=== PATIENT | female | born 1960 ===

== ENCOUNTER 2018-04-19 16:01 | Emergency (ER) | payer OTHER ==
[2018-04-19 16:15] VITALS: BP 121/70; PULSE 73; RESP 16; TEMP 98.3; O2SAT 98
--- NOTE | 2018-04-19 17:53 | ED PDOC ---
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 Patient denies any injury to the area, but states she has had similar pain in the past (a long time ago) that resolved. Patient reports back pain with movement, worsening when she arches her back or sits down. Patient took motrin yesterday with no relief. PMD: None provided. Past Medical History Reviewed: Historical Data, Nursing Documentation, Vital Signs Vital Signs: Last Vital Signs Temp 98.3 F 04/19/18 16:12 Pulse 73 04/19/18 16:12 Resp 16 04/19/18 16:12 BP 121/70 04/19/18 16:12 Pulse Ox 98 04/19/18 16:12 - Medical History PMH: No Chronic Diseases - Family History Family History: States: No Known Family Hx - Allergies Allergies/Adverse Reactions: Allergies Allergy/AdvReac Type Severity Reaction Status Date / Time No Known Allergies Allergy Verified 04/19/18 16:16 Review of Systems ROS Statement: Except As Marked, All Systems Reviewed And Found Negative Musculoskeletal: Positive for: Back Pain (lower) Physical Exam - Reviewed Nursing Documentation Reviewed: Yes Vital Signs Reviewed: Yes - Physical Exam Appears: Positive for: Well, Non-toxic, No Acute Distress Head Exam: Positive for: ATRAUMATIC, NORMOCEPHALIC Skin: Positive for: Normal Color Back: Positive for: Normal Inspection. Negative for: L CVA Tenderness, R CVA Tenderness, Vertebral Tenderness, Other (lesions) Neurologic/Psych: Positive for: Alert, Oriented (3x) - ECG O2 Sat by Pulse Oximetry: 98 (RA) Pulse Ox Interpretation: Normal Medical Decision Making Medical Decision Makin:24 Initial impression: 58 year old female with back pain Initial plan: * reevaluation Pt left ER prior to getting pain medication. Scribe Attestation: Documented by Lisseth Delgado, acting as a scribe for Niyah Vizcarra PA-C. Provider Scribe Attestation: All medical record entries made by the Scribe were at my direction and personally dictated by me. I have reviewed the chart and agree that the record accurately reflects my personal performance of the history, physical exam, medical decision making, and the department course for this patient. I have also personally directed, reviewed, and agree with the discharge instructions and disposition. Disposition - Clinical Impression Clinical Impression: Low back pain - Patient ED Disposition Is Patient to be Admitted: No Counseled Patient/Family Regarding: Diagnosis, Need For Followup - Disposition Disposition: Left W/O Treatment Disposition Time: 17:06 Condition: GOOD Forms: [employer] (Lao)
== END 2018-04-19 18:30 | disposition left against medical advice (07) ==
LOC: MERGE 16:01 → H.ER 16:01
DX: M54.5 Low back pain (principal)

== ENCOUNTER 2018-09-25 14:34 | Emergency (ER) | payer OTHER ==
[2018-09-25 14:34] VITALS: BMI 26.4
[2018-09-25 14:40] VITALS: BP 125/74; PULSE 82; RESP 15; TEMP 98.8; O2SAT 97
--- NOTE | 2018-09-25 15:34 | ED PDOC ---
Lower Extremity Pain/Injury Time Seen by Provider: 09/25/18 14:43 Chief Complaint (Nursing): Lower Extremity Problem/Injury Chief Complaint (Provider): Lower Extremity Problem/Injury History Per: Patient, Inpatient Care Manager Rn (Amado Chadwick #[id number]) History/Exam Limitations: language barrier Onset/Duration Of Symptoms: Days (x1) Current Symptoms Are (Timing): Still Present Additional Complaint(s): Patient is a 58 y/o female with a PMHx of hypercholesterolemia who presents to the ED for evaluation of atraumatic, non-radiating bilateral knee pain onset yesterday. Patient claims the pain is greater on the left than on the right. Patient states she has been taking Motrin with no relief. Patient denies trauma, fever, numbness, tingling, and calf pain. PCP: None Provided Past Medical History Reviewed: Historical Data, Nursing Documentation, Vital Signs Vital Signs: Last Vital Signs Temp 98.8 F 09/25/18 14:39 Pulse 82 09/25/18 14:39 Resp 15 09/25/18 14:39 BP 125/74 09/25/18 14:39 Pulse Ox 97 09/25/18 14:39 - Medical History PMH: Hypercholesterolemia Denies: Chronic Kidney Disease - Surgical History Surgical History: No Surg Hx Denies: Appendectomy, Cholecystectomy - Family History Family History: States: Unknown Family Hx - Immunization History Hx Tetanus Toxoid Vaccination: No Hx Influenza Vaccination: No Hx Pneumococcal Vaccination: No - Home Medications Home Medications: Ambulatory Orders Medication Instructions Recorded Meloxicam [Mobic] 7.5 mg PO DAILY PRN #10 tab 09/25/18 - Allergies Allergies/Adverse Reactions: Allergies Allergy/AdvReac Type Severity Reaction Status Date / Time No Known Allergies Allergy Verified 05/23/18 10:55 Review of Systems ROS Statement: Except As Marked, All Systems Reviewed And Found Negative Constitutional: Negative for: Fever Musculoskeletal: Positive for: Other (Bilateral Knee Pain). Negative for: Leg Pain (calf) Neurological: Negative for: Numbness (or tingling) Physical Exam - Reviewed Nursing Documentation Reviewed: Yes Vital Signs Reviewed: Yes - Physical Exam Appears: Positive for: No Acute Distress Head Exam: Positive for: ATRAUMATIC, NORMAL INSPECTION, NORMOCEPHALIC Skin: Positive for: Normal Color, Warm, DRY Eye Exam: Positive for: EOMI, Normal appearance, PERRL Neck: Positive for: Normal, Painless ROM, Supple Cardiovascular/Chest: Positive for: Regular Rate, Rhythm. Negative for: Murmur Respiratory: Positive for: Normal Breath Sounds. Negative for: Respiratory Distress Pulses-Dorsalis Pedis (L): 2+ Pulses-Dorsalis Pedis (R): 2+ Extremity: Positive for: Normal ROM (actively), Capillary Refill (less than 2 seconds), Swelling (minimal on left knee; none on right knee). Negative for: Tenderness (bilaterally), Calf Tenderness, Deformity, Other (warmth or erythema) Neurological/Psych: Positive for: Alert, Oriented (x3) - ECG O2 Sat by Pulse Oximetry: 97 (RA) Pulse Ox Interpretation: Normal - Radiology X-Ray: Interpreted by Me (b/l knee x-ray) X-Ray Interpretation: No Acute Disease Medical Decision Making Medical Decision Making: Time: 1450 Impression: Bilateral Knee Pain Plan: Knee 3 Views BI [Rad] Toradol 30 mg IM Scribe Attestation: Documented by Zana Duarte, acting as a scribe Julio Cesar Farley PA-C. Provider Scribe Attestation: All medical record entries made by the Scribe were at my direction and personally dictated by me. I have reviewed the chart and agree that the record accurately reflects my personal performance of the history, physical exam, medical decision making, and the department course for this patient. I have also personally directed, reviewed, and agree with the discharge instructions and disposition. Disposition - Clinical Impression Clinical Impression: Bilateral knee pain - Patient ED Disposition Is Patient to be Admitted: No - Disposition Disposition: Routine/Home Disposition Time: 15:15 Condition: IMPROVED Additional Instructions: FOLLOW UP WITH AN ORTHOPEDIST FOR FURTHER EVALUATION RETURN TO ED IMMEDIATELY IF SYMPTOMS WORSEN CHAVA BLANCO, thank you for letting us take care of you today. Your provider was Tito Horta MD and you were treated for B/L KNEE PAIN. The emergency medical care you received today was directed at your acute symptoms. If you were prescribed any medication, please fill it and take as directed. It may take several days for your symptoms to resolve. Return to the Emergency Department if your symptoms worsen, do not improve, or if you have any other problems. Please contact your doctor or call one of the physicians/clinics you have been referred to that are listed on the Patient Visit Information form that is included in your discharge packet. Bring any paperwork you were given at discharge with you along with any medications you are taking to your follow up visit. Our treatment cannot replace ongoing medical care by a primary care provider outside of the emergency department. Thank you for allowing the [facility] team to be part of your care today. If you had an X-Ray or CT scan: A Radiologist will review the ED reading if any change in treatment is needed we will contact you. If you had a blood, urine, or wound culture: It will take several days for the results, if any change in treatment is needed we will contact you. If you had an STI test: It will take 48 hours for the results. Please call after 1 week if you have not heard back. Prescriptions: Meloxicam [Mobic] 7.5 mg PO DAILY PRN #10 tab PRN Reason: Pain, Mild (1-3) Instructions: Knee Pain (DC) Print Language: ALBANIAN
--- NOTE | 2018-09-25 16:21 | RAD ---
Date of service: 09/25/2018 PROCEDURE: Bilateral Knee Radiographs. HISTORY: Pain COMPARISON: None. TECHNIQUE: 3 views obtained. FINDINGS: BONES: Bone alignment and mineralization are normal. There is no acute displaced fracture or bone destruction. JOINTS: There is mild tricompartmental degenerative osteoarthrosis with reduced joint spaces, chondrocalcinosis, marginal osteophytes and tibial spiking, worse in the medial compartment. SOFT TISSUES: Right Knee: Normal. Left Knee: Normal. JOINT EFFUSION: Right Knee: None. Left Knee: None. OTHER FINDINGS: None. IMPRESSION: No acute fracture or dislocation. Mild tricompartmental degenerative osteoarthrosis, worse in the medial compartments.
== END 2018-09-25 16:26 | disposition home or self-care (01) ==
LOC: H.ER 14:34 → SUPCPDRO 14:34 → H.ER 16:26
DX: M25.561 Pain in right knee (principal); M25.562 Pain in left knee
CPT/HCPCS: 73562; 96372; 99283; J1885

== ENCOUNTER 2018-10-09 10:52 | Emergency (ER) | payer SELFPAY ==
[2018-10-09 11:19] VITALS: PULSE 71; TEMP 98.3; O2SAT 99
--- NOTE | 2018-10-09 11:22 | ED PDOC ---
Lower Extremity Pain/Injury Time Seen by Provider: 10/09/18 10:59 Chief Complaint (Nursing): Lower Extremity Problem/Injury History Per: Patient Onset/Duration Of Symptoms: Other (1 week) Current Symptoms Are (Timing): Still Present Severity: Moderate Additional Complaint(s): Right knee pain x 1 week. No injury or fall. Denies fever. Has pain on bending and bearing weight. Past Medical History Vital Signs: Last Vital Signs Temp 98.3 F 10/09/18 11:07 Pulse 71 10/09/18 11:07 Resp 16 10/09/18 11:07 BP 137/75 10/09/18 11:07 Pulse Ox 99 10/09/18 11:07 - Medical History Other PMH: Gout - Family History Family History: States: Unknown Family Hx - Home Medications Home Medications: Ambulatory Orders Medication Instructions Recorded Indomethacin [Indocin] 25 mg PO Q8 #15 cap 10/09/18 traMADol [Ultram] 50 mg PO Q8 #10 tab 10/09/18 - Allergies Allergies/Adverse Reactions: Allergies Allergy/AdvReac Type Severity Reaction Status Date / Time No Known Allergies Allergy Verified 10/09/18 11:06 Review of Systems Constitutional: Negative for: Fever Musculoskeletal: Positive for: Other (Right knee pain) Skin: Negative for: Rash Neurological: Negative for: Weakness, Numbness Physical Exam - Physical Exam Appears: Positive for: Non-toxic, No Acute Distress Skin: Positive for: Normal Color, Warm, DRY Extremity: Positive for: Swelling (Mild swelling right knee. ROM limited by pain). Negative for: Tenderness, Deformity - Laboratory Results Result Diagrams: 10/09/18 11:43 - ECG O2 Sat by Pulse Oximetry: 99 Disposition - Clinical Impression Clinical Impression: Arthritis - Patient ED Disposition Is Patient to be Admitted: No Counseled Patient/Family Regarding: Studies Performed, Diagnosis, Need For Followup, Rx Given - Disposition Referrals: [facility] [Outside] Disposition: Routine/Home Disposition Time: 12:30 Condition: FAIR Prescriptions: Indomethacin [Indocin] 25 mg PO Q8 #15 cap traMADol [Ultram] 50 mg PO Q8 #10 tab Instructions: Osteoarthritis Forms: [facility] (Slovenian) Print Language: DOMINICAN
[2018-10-09 12:07] LABS: BASO # 0.1 K/uL (0.0-0.2); BASO % 0.6 % (0.0-2.0); EOS # 0.1 K/uL (0.0-0.7); EOS % 1.7 % (0.0-4.0); LYMPH % 23.7 % (20.0-40.0); MEAN CELL VOLUME 91.4 fl (81.0-99.0); MEAN CORPUSCULAR HEMOGLOBIN 30.6 pg (27.0-31.0); MEAN CORPUSCULAR HGB CONC 33.5 g/dL (33.0-37.0); MONO # 0.5 K/uL (0.0-0.8); MONO % 5.4 % (0.0-10.0); NEUT # 5.8 K/uL (1.8-7.0); NEUT % 68.6 % (50.0-75.0); NRBC % 0.1 % (0.0-0.0); RBC 4.26 Mil/uL (3.80-5.20); RED CELL DISTRIBUTION WIDTH 13.5 % (11.5-14.5); WHITE BLOOD COUNT 8.5 K/uL (4.8-10.8)
[2018-10-09 12:39] VITALS: BP 118/80; RESP 20
== END 2018-10-09 12:31 | disposition home or self-care (01) ==
LOC: EDUNIT# 10:52 → H.ER 10:52
DX: M19.90 Unspecified osteoarthritis, unspecified site (principal)
CPT/HCPCS: 84550; 85025; 96372; 99284; J1885